=== PATIENT | male | born 1955 | race Two or more races ===

== ENCOUNTER 2024-09-27 13:45 | Inpatient (IN) | payer MEDICARE, OTHER ==
[~2024-09-27] VITALS: Ht 172.7 cm; Wt 81.7 kg
--- NOTE | 2024-09-27 14:45 | ED.PDOC ---
History of Present Illness HPI Comments This is a 69 year old male presenting to the ED with chief complaint of abnormal labs and joint pain. Patient reports that he has been experiencing joint pains for the past 6-8 weeks along with associated bilateral hand swelling. Patient relays that he visited urgent care today and had been provided Toradol and steroid injection for his pain/swelling. Patient states he has been experiencing some recent SOB and fatigue recently, so when his blood was checked by the urgent care, he was found to have a Hgb of 7.6. Patient notes he was advised by the to come into the ED for further evaluation. Patient denies any chest pain, dizziness, headache, fever, chills, N/V/D, or abdominal pain. Chief Complaint: Abnormal LAB's Time Seen by MD: 14:41 Reviewed Notes: Nurses Notes, Medications, Allergies Allergies: Coded Allergies: Anesthetics, Amide (Verified Allergy, Intermediate, 09/27/24) Information Source: Patient Mode of Arrival: Ambulatory Severity: Moderate Timing: Weeks Duration: Since onset Prehospital treatment: None Past Medical History PAST MEDICAL HISTORY: High Lipids, HTN Past Medical History (Other): BPH Surgical History (Other): Bilateral knee surgery, right carpal tunnel surgery Family History Family History: Reviewed,noncontributory to illness Family History (Other): Alzheimer's Social History Smoker: Non-Smoker Alcohol: Denies ETOH Use Drugs: Denies Drug Use Lives In: Home Constitutional: reports: fatigue; denies: chills, diaphoresis, fever, malaise, sweats, weakness, others EENTM: denies: blurred vision, double vision, ear bleeding, ear discharge, ear drainage, ear pain, ear ringing, eye pain, eye redness, hearing loss, mouth pain, mouth swelling, nasal discharge, nose bleeding, nose congestion, nose pain, photophobia, tearing, throat pain, throat swelling, voice changes, others Respiratory: reports: shortness of breath; denies: cough, hemoptysis, orthopnea, SOB at rest, SOB with excertion, stridor, wheezing, others Cardiovascular: denies: chest pain, dizzy spells, diaphoresis, Dyspnea on exertion, edema, irregular heart beat, left arm pain, lightheadedness, palpitations, PND, syncope, others Gastrointestinal: denies: abdomen distended, abdominal pain, blood streaked bowels, constipated, diarrhea, dysphagia, difficulty swallowing, hematemesis, melena, nausea, poor appetite, poor fluid intake, rectal bleeding, rectal pain, vomiting, others Genitourinary: denies: burning, dysuria, flank pain, frequency, hematuria, incontinence, penile discharge, penile sore, pain, testicle pain, testicle swelling, urgency, others Neurological: denies: dizziness, fainting, headache, left sided numbness, left sided weakness, numbness, paresthesia, pre-existing deficit, right sided numb ness, right sided weakness, seizure, speech problems, tingling, tremors, weakness, others Musculoskeletal: reports: joint pain, others (Bilateral hand swelling); denies: back pain, gout, joint swelling, muscle pain, muscle stiffness, neck pain Integumetry: denies: bruises, change in color, change in hair/nails, dryness, laceration, lesions, lumps, rash, wounds, others Allergic/Immunocompromised: denies: Difficulty Healing, Frequent Infections, Hives, Itching, others Hematologic/Lymphatic: denies: anemia, blood clots, easy bleeding, easy bruising, swollen glands, others Endocrine: denies: excessive hunger, excessive sweating, excessive thirst, excessive urination, flushing, intolerance to cold, intolerance to heat, unexplained weight gain, unexplained weight loss, others Psychiatric: denies: anxiety, bipolar disorder, depression, hopeless, panic disorder, schizophrenia, sleepless, suicidal, others All Other Systems: Reviewed and Negative Physical Exam General Appearance: Moderate Distress HEENT: Pale Conjuntivae (L), Pale Conjuntivae (R), Pharynx Normal, TMs Normal Neck: Full Range of Motion, Non-Tender, Normal, Normal Inspection Respiratory: Chest Non-Tender, Lungs Clear, No Accessory Muscle Use, No Respiratory Distress, Normal Breath Sounds Cardiovascular: No Edema, No JVD, No Murmur, No Gallop, Normal Peripheral Pulses, Regular Rate/Rhythm Breast Exam: Deferred Gastrointestinal: No Organomegaly, Non Tender, No Pulsatile Mass, Normal Bowel Sounds, Soft Genitalia: Deferred Pelvic: Deferred Rectal: Deferred Extremities: No calf tenderness, Normal capillary refill, No pedal edema Musculoskeletal : Apperance: Normal Neurologic: Alert, publicity agent II-XII nml as Tested, Motor Weakness, Normal Affect, Normal Mood, No Sensory Deficits Cerebellar Function: Normal Reflexes: Normal Skin: Dry, Pallor, Warm Lymphatic: No Adenopathy Was a procedure done? Was a procedure done?: No Differential Dx Considerations may include: Generalized weakness, anemia, leukopenia X-Ray, Labs, Meds, VS Vital Signs Date Time Temp Pulse Resp B/P (MAP) Pulse Ox O2 Delivery O2 Flow Rate FiO2 09/27/24 17:20 Room Air* 0 21 09/27/24 17:00 98.3 69 15 119/78 (92) 96 98.3 09/27/24 16:19 98.3 74 16 140/82 (101) 95 98.3 09/27/24 14:13 98.2 86 16 142/82 (102) 97 98.2 Lab Test 09/27/24 15:45 09/27/24 14:06 Range/Units White Blood Count 1.8 *L 4.4-10.8 10^3/uL Red Blood Count 2.34 L 4.5-5.90 10^6/uL Hemoglobin 7.4 L 13.5-17.5 g/dL Hematocrit 23.3 L 41.0-53.0 % Mean Corpuscular Volume 99.6 80.0-100.0 fL Mean Corpuscular Hemoglobin 31.8 28.0-32.0 pg Mean Corpuscular Hemoglobin Concent 31.9 L 32.0-36.0 g/dL Red Cell Distribution Width 20.5 H 11.8-14.3 % Platelet Count 135 L 140-450 10^3/uL Mean Platelet Volume 7.2 6.9-10.8 fL Neutrophils (%) (Auto) 37.0-80.0 % Lymphocytes (%) (Auto) 10.0-50.0 % Monocytes (%) (Auto) 0.0-12.0 % Basophils (%) (Auto) 0.0-2.0 % Neutrophils # (Auto) 1.6-8.6 10 ^3/uL Lymphocytes # (Auto) 0.4-5.4 10 ^3/uL Monocytes # (Auto) 0-1.3 10 ^3/uL Differential Total Cells Counted 100.0 100 Neutrophils % (Manual) 67 37.0-80.0 Band Neutrophils % (Manual) 0 Lymphocytes % (Manual) 25 10.0-50.0 Monocytes % (Manual) 7 0-12 Eosinophils % (Manual) 0 0-7 Basophils % (Manual) 0 0.0-2.0 Metamyelocytes % (manual) 0 Myelocytes % (Manual) 1 Promyelocytes % (Manual) 0 Blast Cells % (Manual) 0 Reactive Lymphocytes 0 Platelet Estimate Decreased Anisocytosis (manual) Slight Prothrombin Time 11.1 9.3-11.8 sec Prothrombin Time INR 1.05 0.9-1.15 Activated Partial Thromboplast Time 27.6 24.5-34.5 SEC Sodium Level 139 136-145 mmol/L Potassium Level 4.5 3.5-5.1 mmol/L Chloride Level 108 H 98-107 mmol/L Carbon Dioxide Level 21 20-31 mmol/L Anion Gap 10 5-15 Blood Urea Nitrogen 19 9-23 mg/dL Creatinine 1.05 0.700-1.30 mg/dL Glomerular Filtration Rate Calc 76 >90 mL/min BUN/Creatinine Ratio 18.1 10.0-20.0 Serum Glucose 121 H 74-106 mg/dL Calcium Level 10.4 8.7-10.4 mg/dL Urine Color Light-orange Yellow Urine Clarity Ex.turbid Clear Urine pH 5.0 5.0-9.0 Urine Specific [place] 1.027 1.001-1.035 Urine Protein Negative Negative Urine Ketones Negative Negative Urine Blood Negative Negative /uL Urine Nitrite Negative Negative Urine Bilirubin Negative Negative Urine Urobilinogen 2 H Negative mg/dL Urine Leukocyte Esterase Negative Negative /uL Urine RBC 1 0 - 3 /hpf Urine Microscopic WBC 12 H 0-3 /HPF Urine Squamous Epithelial Cells None seen <5 /hpf Urine Bacteria None seen None Seen /hpf Urine Mucus Few None Seen Urine Glucose Normal Normal mg/dL The CBC shows a white blood cell count of 1.8 The patient is anemic with a hemoglobin of 7.4 and hematocrit 23.3 The patient's platelets are 135 The INR is 1.05 The chemistry panel is within normal limits The urine test is negative for any infection At this time a CAT scan of the abdomen and pelvis shows: IMPRESSION: Mild gastric wall thickening which may be due to inadequate distention/pierre ritis. Moderate amount of fecal material within the colon. Mild rectal wall thickening which may be due to inadequate distention with neoplasm not excluded. Enlarged prostate. Recommend correlation with PSA. We discussed the patient's findings and also discussed the fact that we need to work him up for possible neoplasm The patient is being admitted We have also discussed the findings with the patient's daughter The patient understands and agrees with the management. Images Reviewed?: Images reviewed and evaluated by me Time of 1ST Reevaluation: 18:21 Reevaluation 1ST: Unchanged Patient Education/Counseling: Diagnosis, Treatment, Prognosis Family Education/Counseling: Diagnosis, Treatment, Prognosis Additional Information Reviewed patient's previous visit(s): None The following tests were ordered, and results were reviewed by me: CBC, BMP Additional information was gathered from interviewing the following independent historian: NONE I reviewed and agreed with the following test results read by other provider: NONE I discussed treatments and results with medical personnel and: Patient Comprehensive systems review obtained and negative except for what is stated in the HPI. Departure 1 Departure Time of Disposition: 18:20 Impression: Primary Impression: Leukopenia Qualified Codes: D72.819 - Decreased white blood cell count, unspecified Additional Impressions: Severe anemia Generalized weakness Gastric wall thickening Disposition: ADMITTED INPATIENT Admit to: Tele Condition: Fair Critical Care Note Critical Care Time?: No Stability Stability form required: Yes Unstable for transfer: ED Physician Assesment (Clinical assesment) Heart Score Heart Score: Heart Score Response (Comments) Value History N/A 0 EKG N/A 0 Age N/A 0 Risk Factors N/A 0 Troponin N/A 0 Total 0 I personally scribed for ELVIRA GRISSOM MD ([email or web address]) on 09/27/24 at 14:45. Electronically submitted by Lj Dudley ([email or web address]). ELVIRA GRISSOM MD Sep 27, 2024 14:45
[2024-09-27 15:58] LABS: Urine Bacteria None Seen /hpf (None Seen)
--- NOTE | 2024-09-27 16:02 | DVH ---
Exam: CT CT AB PEL WO CON-NO ORAL OR IV History: pain Comparison Study: None TECHNIQUE: Multidetector CT of the abdomen and pelvis without IV contrast. Axial, coronal and sagitta l multiplanar reformats were obtained from the axial data set by the technologist. Radiation Dose Information: CT Dose: CTDI volume is 20.45 mGy. Dose-length product is 1075.28 mGy*cm FINDINGS: Bibasilar atelectasis. Partially visualized heart is unremarkable. Liver, spleen, gallbladder, pancreas and adrenal glands unremarkable. Mild nonspecific bilateral perinephric fat stranding. Otherwise, kidneys, ureters and urinary bladde r unremarkable. Prostate measures 4.5 x 5.2 by 3.9 cm. Mild gastric wall thickening. Small bowel loops are unremarkable. Appendix is unremarkable. Moderate amount of fecal material within the colon. Mild rectal wall thickening. No evidence of intraperitoneal free air or free fluid. No evidence of aortic aneurysm. Mild atherosclerotic calcification of the aorta. No significant lymphadenopathy. The soft tissue is unremarkable. Prominent right inguinal lymph node which may be reactive. Sclerotic foci of the bilateral proximal femur bilateral pelvic bones which may represent bone islands blastic lesions not excluded. Multilevel severe degenerative changes of the thoracic and lumbar spine. IMPRESSION: Mild gastric wall thickening which may be due to inadequate distention/gastritis. Moderate amount of fecal material within the colon. Mild rectal wall thickening which may be due to inadequate distention with neoplasm not excluded. Enlarged prostate. Recommend correlation with PSA.
[2024-09-27 16:21] LABS: Urine Blood Negative /uL (Negative); Urine Clarity Ex.Turbid (Clear); Urine Color Light-Orange (Yellow); Urine Mucus FEW (None Seen); Urine Protein, UAD Negative (Negative); Urine Specific Gravity 1.027 (1.001-1.035); Urine Squamous Epithelial Cell None Seen /hpf (<5); Urine Urobilinogen 2 mg/dL (Negative); Urine WBC 12 /HPF (0-3)
[2024-09-27 16:24] LABS: Anion Gap 10 (5-15); Carbon Dioxide 21 mmol/L (20-31); Potassium 4.5 mmol/L (3.5-5.1); Sodium 139 mmol/L (136-145)
[2024-09-27 16:25] LABS: Calcium 10.4 mg/dL (8.7-10.4)
[2024-09-27 16:30] LABS: BUN/Creatinine Ratio 18.1 (10.0-20.0); Blood Urea Nitrogen 19 mg/dL (9-23)
[2024-09-27 16:31] LABS: Chloride 108 mmol/L (98-107); Glucose 121 mg/dL (74-106)
[2024-09-27 16:32] LABS: INR 1.05 (0.9-1.15); Partial Thromboplastin Time 27.6 SEC (24.5-34.5); Prothrombin Time 11.1 sec (9.3-11.8)
[2024-09-27 16:33] LABS: Hematocrit 23.3 % (41.0-53.0); Hemoglobin 7.4 g/dL (13.5-17.5); Mean Corpuscular Hemoglobin 31.8 pg (28.0-32.0); Mean Corpuscular Hgb Conc. 31.9 g/dL (32.0-36.0); Mean Corpuscular Volume 99.6 fL (80.0-100.0); Platelet Count (auto) 135 10^3/uL (140-450); Red Blood Cells 2.34 10^6/uL (4.5-5.90)
[2024-09-27 16:35] LABS: Red Cell Distribution Width 20.5 % (11.8-14.3)
[2024-09-27 16:38] LABS: White Blood Cell 1.8 10^3/uL (4.4-10.8)
[2024-09-27 16:39] LABS: Band Neutrophils % (manual) 0; Basophils % (manual) 0 (0.0-2.0); Blast Cells 0; Eosinophils % (manual) 0 (0-7); Metamyelocytes % 0; Promyelocytes % 0; Reactive Lymphocytes 0
[2024-09-27 17:42] LABS: Anisocytosis Slight; Lymphocytes % (manual) 25 (10.0-50.0); Monocytes % (manual) 7 (0-12); Myelocytes % 1; Platelet Estimate Decreased
[2024-09-27 19:45] VITALS: BP 142/87; PULSE 71; RESP 13; TEMP 97.8
[2024-09-27] MEDS ORDERED: ACETAMINOPHEN 325 MG TAB PO PRN (19:45)
[2024-09-27] MEDS ORDERED: hydrALAZINE HCL 20 MG/ML VL IV PRN (19:45)
[2024-09-27] MEDS ORDERED: ONDANSETRON HCL 4 MG/2 ML VIAL IV PRN (19:45)
[2024-09-27] MEDS ORDERED: HYDROcodone-ACET 5/325MG TAB PO PRN (19:45)
[2024-09-27 20:10] VITALS: BP 141/91; PULSE 65; RESP 18; TEMP 97.9
[2024-09-27] MEDS: SODIUM CHLORIDE 0.9% 1,000 ML IV SCH (21:40)
[2024-09-27] MEDS: amLODIPine BESYLATE 5 MG TAB PO ONE (21:51)
[2024-09-27] MEDS: ATORVASTATIN 20 MG TAB PO SCH (21:53)
--- NOTE | 2024-09-27 22:12 | DVHHP2 ---
History of Present Illness Reason for Visit: Severe anemia History of Present Illness The patient is a 69-year-old male with past medical history of BPH, hypertension, and hyperlipidemia who presented to [facility] ED for evaluation of abnormal labs. Patient reports that he has been experiencing joint pains for the past 6-8 weeks with associated bilateral hand swelling, fatigue, shortness of breaths. Patient states that he visited urgent care today and had been provided Toradol and steroid injection for his pain/swelling. Patient was seen and evaluated in the ED, laboratory data shows WBC 1.8, hemoglobin 7.4, hematocrit 23.3, platelets 135, sodium 139, potassium 4.5, BUN 19, creatinine 1.05, glucose 121, calcium 10.4, blood pressure 155/94, heart rate 72, temperature 98.3 F, O2 saturation 96% on oxygen. Abdomen/pelvis CT revealing mild gastric wall thickening which may be due to inadequate distention/gastritis, moderate amount of fecal material within the colon, mild rectal wall thickening which may be due to inadequate distention with neoplasm not excluded, enlarged prostate noted. Patient was given 1 unit of PRBC, please see medication orders section in the computer. On my assessment, patient denied chest pain, no headache, no dizziness, and blurry vision, no diaphoresis, currently on oxygen, no nausea, no vomiting, no fever, no chills. Patient was admitted for further evaluation and medical management. Past Medical History High Lipids, HTN, BPH Past Surgical History Bilateral knee surgery, Right carpal tunnel surgery Family History Reviewed, noncontributory to the management of this case. Past Social History The patient lives at home, denies smoking, alcohol or illicit drugs abuse. Review of Systems Constitutional: Yes: Weakness, Other (Fatigue); No: Fever, Chills, Sweats, Malaise Eyes: No: Pain, Vision change, Conjunctivae inflammation, Eyelid inflammation, Other, Redness ENT: No: Ear pain, Ear discharge, Nose pain, Nose discharge, Nose congestion, Mouth pain, Mouth swelling, Throat pain, Throat swelling, Other Respiratory: No: Cough, Dry, Shortness of breath, SOB with excertion, Wheezing, Hemoptysis, Pleuritic Pain, Sputum, Wheezing, Other Cardiovascular: No: Chest Pain, Palpitations, Orthopnea, Paroxysmal Noc. Dyspnea, Edema, Lt Headedness, Other Gastrointestinal: No: Nausea, Vomiting, Abdominal Pain, Diarrhea, Constipation, Melena, Hematochezia, Other Genitourinary: No Dysuria, No Frequency, No Incontinence, No Hematuria, No Retention, No Other Musculoskeletal: other (Joint pain), arm pain (Bilateral hand swelling); No: neck pain, shoulder pain, back pain, hand pain, leg pain, foot pain Skin: No: Rash, Lesions, Jaundice, Bruising, Other Neurological: No: Weakness, Numbness, Incoordination, Change in speech, Confusion, Seizures, Other Allergies: Coded Allergies: Anesthetics, Amide (Verified Allergy, Intermediate, 09/27/24) Medications Current Medications Medications Dose Ordered Sig/Rigo Route Start Time Stop Time Status Last Admin Dose Admin Tamsulosin HCl 0.4 mg QPM PO 09/28/24 18:00 Hydralazine HCl 10 mg Q6HP PRN IV 09/27/24 19:45 Amlodipine Besylate 5 mg DAILY PO 09/28/24 10:00 Sodium Chloride 1,000 ml @ 60 mls/hr [id number] IV 09/27/24 19:45 Acetaminophen/ Hydrocodone Bitart 1 tab Q4HP PRN PO 09/27/24 19:45 Ondansetron HCl 4 mg Q4HP PRN IV 09/27/24 19:45 Docusate Sodium 100 mg BIDPRN PRN PO 09/27/24 19:45 Acetaminophen 650 mg Q6HP PRN PO 09/27/24 19:45 Atorvastatin Calcium 10 mg HS PO 09/27/24 22:00 09/27/24 21:53 10 MG Exam Vital Signs Vital Signs Date Time Temp Pulse Resp B/P (MAP) Pulse Ox O2 Delivery O2 Flow Rate FiO2 09/27/24 21:51 147/92 09/27/24 20:10 97.9 65 18 97.9 09/27/24 18:59 93 09/27/24 17:20 Room Air* 0 21 General Appearance: Alert, Oriented X3, Cooperative, No acute distress HEENT: Atraumatic, PERRLA, EOMI, Mucous membr. moist/pink Respiratory: Clear to auscultation, Normal air movement Cardiovascular: Regular rate, Normal S1, Normal S2, No murmurs Abdominal: Normal bowel sounds, Soft, No tenderness, No hepatospenomegaly, No masses Extremities: No clubbing, No cyanosis, No edema, Normal pulses, Other (Bilateral hand swelling/tenderness) Skin: No rashes, No breakdown, No significant lesion Neuro: Normal speech, Normal tone, Sensation intact, Cranial nerves 3-12 NL, Reflexes 2+, Other (Generalized weakness) Psych/Mental Status: Mental status NL, Mood NL Labs/Xrays Labs Test 09/27/24 15:45 09/27/24 14:06 Range/Units White Blood Count 1.8 *L 4.4-10.8 10^3/uL Red Blood Count 2.34 L 4.5-5.90 10^6/uL Hemoglobin 7.4 L 13.5-17.5 g/dL Hematocrit 23.3 L 41.0-53.0 % Mean Corpuscular Volume 99.6 80.0-100.0 fL Mean Corpuscular Hemoglobin 31.8 28.0-32.0 pg Mean Corpuscular Hemoglobin Concent 31.9 L 32.0-36.0 g/dL Red Cell Distribution Width 20.5 H 11.8-14.3 % Platelet Count 135 L 140-450 10^3/uL Mean Platelet Volume 7.2 6.9-10.8 fL Neutrophils (%) (Auto) 37.0-80.0 % Lymphocytes (%) (Auto) 10.0-50.0 % Monocytes (%) (Auto) 0.0-12.0 % Basophils (%) (Auto) 0.0-2.0 % Neutrophils # (Auto) 1.6-8.6 10 ^3/uL Lymphocytes # (Auto) 0.4-5.4 10 ^3/uL Monocytes # (Auto) 0-1.3 10 ^3/uL Differential Total Cells Counted 100.0 100 Neutrophils % (Manual) 67 37.0-80.0 Band Neutrophils % (Manual) 0 Lymphocytes % (Manual) 25 10.0-50.0 Monocytes % (Manual) 7 0-12 Eosinophils % (Manual) 0 0-7 Basophils % (Manual) 0 0.0-2.0 Metamyelocytes % (manual) 0 Myelocytes % (Manual) 1 Promyelocytes % (Manual) 0 Blast Cells % (Manual) 0 Reactive Lymphocytes 0 Platelet Estimate Decreased Anisocytosis (manual) Slight Prothrombin Time 11.1 9.3-11.8 sec Prothrombin Time INR 1.05 0.9-1.15 Activated Partial Thromboplast Time 27.6 24.5-34.5 SEC Sodium Level 139 136-145 mmol/L Potassium Level 4.5 3.5-5.1 mmol/L Chloride Level 108 H 98-107 mmol/L Carbon Dioxide Level 21 20-31 mmol/L Anion Gap 10 5-15 Blood Urea Nitrogen 19 9-23 mg/dL Creatinine 1.05 0.700-1.30 mg/dL Glomerular Filtration Rate Calc 76 >90 mL/min BUN/Creatinine Ratio 18.1 10.0-20.0 Serum Glucose 121 H 74-106 mg/dL Calcium Level 10.4 8.7-10.4 mg/dL Urine Color Light-orange Yellow Urine Clarity Ex.turbid Clear Urine pH 5.0 5.0-9.0 Urine Specific [place] 1.027 1.001-1.035 Urine Protein Negative Negative Urine Ketones Negative Negative Urine Blood Negative Negative /uL Urine Nitrite Negative Negative Urine Bilirubin Negative Negative Urine Urobilinogen 2 H Negative mg/dL Urine Leukocyte Esterase Negative Negative /uL Urine RBC 1 0 - 3 /hpf Urine Microscopic WBC 12 H 0-3 /HPF Urine Squamous Epithelial Cells None seen <5 /hpf Urine Bacteria None seen None Seen /hpf Urine Mucus Few None Seen Urine Glucose Normal Normal mg/dL PATIENT: SHANTANU BYERS ALANACCT: [id number] UNIT: [id number] : 1955 LOC: ER ROOM / BED: / AGE / SEX: 69 / M ADM STATUS: REG ER SERVICE [id number] ORDERING PHYSICIAN: ELVIRA GRISSOM MD PROCEDURE(s): ABPL - CT AB PEL WO CON-NO ORAL OR IV REASON: pain ORDER NUMBER(s): [id number], ACCESSION NUMBER(s): [id number] Exam: CT CT AB PEL WO CON-NO ORAL OR IV History: pain Comparison Study: None TECHNIQUE: Multidetector CT of the abdomen and pelvis without IV contrast. Axial, coronal and sagittal multiplanar reformats were obtained from the axial data set by the technologist. Radiation Dose Information: CT Dose: CTDI volume is 20.45 mGy. Dose-length product is 1075.28 mGy*cm FINDINGS: Bibasilar atelectasis. Partially visualized heart is unremarkable. Liver, spleen, gallbladder, pancreas and adrenal glands unremarkable. Mild nonspecific bilateral perinephric fat stranding. Otherwise, kidneys, ureters and urinary bladder unremarkable. Prostate measures 4.5 x 5.2 by 3.9 cm. Mild gastric wall thickening. Small bowel loops are unremarkable. Appendix is unremarkable. Moderate amount of fecal material within the colon. Mild rectal wall thickening. No evidence of intraperitoneal free air or free fluid. No evidence of aortic aneurysm. Mild atherosclerotic calcification of the aorta. No significant lymphadenopathy. The soft tissue is unremarkable. Prominent right inguinal lymph node which may be reactive. Sclerotic foci of the bilateral proximal femur bilateral pelvic bones which may represent bone islands blastic lesions not excluded. Multilevel severe degenerative changes of the thoracic and lumbar spine. IMPRESSION: Mild gastric wall thickening which may be due to inadequate distention/gastritis. Moderate amount of fecal material within the colon. Mild rectal wall thickening which may be due to inadequate distention with neoplasm not excluded. Enlarged prostate. Recommend correlation with PSA. Assessment/Plan Assessment/Plan Severe anemia Pancytopenia Gastric wall thickening Generalized weakness Plan 1. Admit to telemetry unit 2. Breathing treatment 3. Pain control management 4. Management of fluids, electrolytes; blood transfusion 5. Consultation for Hematology/Oncology 6. Diagnostic tests chest x-ray 7. DVT prophylaxis-on SCDs 8. Repeat labs CBC, CMP in a.m. 9. Continue with current medical management 10. Treatment plan discussed with patient and RN. Patient verbalized understanding. Plan discussed with: Patient, Other (RN) My Orders Orders - HILARIO COLUNGA DNP Procedure Category Date Status Time Tamsulosin PHA 09/28/24 In Process Hydrochloride (Flomax) 18:00 Hydralazine Injection PHA 09/27/24 In Process (Apresoline Inject 19:45 Amlodipine Tablet PHA 09/28/24 In Process (Norvasc Tablet) 10:00 Allergies [place] 09/27/24 In Process 19:45 Code Status CODE 09/27/24 Transmitted 19:45 Sodium Chloride 0.9% PHA 09/27/24 In Process 19:45 Oxygen Per Hour RT 09/27/24 Transmitted 19:45 Hydrocodone-Acet PHA 09/27/24 In Process 5/325mg Tab ([place] 19:45 Ondansetron Hcl PHA 09/27/24 In Process (Zofran) 19:45 Docusate Sodium PHA 09/27/24 In Process Capsule (Colace 19:45 Fall Risk Precautions [place] 09/27/[address] 19:45 Complete Blood Count LAB 09/28/24 Verified 04:00 Comprehensive LAB 09/28/24 Verified Metabolic Panel 04:00 Cardiac DIET 09/28/24 Transmitted Diet-2gna,Lofat,Lochol Breakfast Condition: Serious [place] 09/27/24 In Process 19:45 Acetaminophen Tablet PHA 09/27/24 In Process (Tylenol Tablet) 19:45 Maintain Bed Rest [place] 09/27/24 In Process 19:45 Sequential [place] 09/27/24 In Process Compression Device * Hematology/Oncology CONS 09/27/24 Transmitted Consult 19:45 Atorvastatin (Lipitor) PHA 09/27/24 In Process 22:00 Problem List: (1) Severe anemia (2) Pancytopenia (3) Gastric wall thickening (4) Generalized weakness Date of Service: Sep 27, 2024 Billing Provider: HILARIO COLUNGA DNP Common Visit Codes: [id number]-NGPIHBP INP/OBS CARE (HIGH) HILARIO COLUNGA DNP Sep 27, 2024 22:12
[2024-09-27] MEDS ORDERED: NITROGLYCERIN 0.4 MG SL TAB SL PRN (22:15)
[2024-09-27] MEDS ORDERED: MORPHINE SULFATE 4 MG/ML SYR/VIAL IV PRN (22:15)
[2024-09-27 22:45] VITALS: BP 159/75; PULSE 57; RESP 21; TEMP 98.8
[2024-09-28 04:48] LABS: Hemoglobin 8.1 g/dL (13.5-17.5); White Blood Cell 2.2 10^3/uL (4.4-10.8)
[2024-09-28 04:49] LABS: Hematocrit 24.7 % (41.0-53.0); Mean Corpuscular Hemoglobin 32.5 pg (28.0-32.0); Mean Corpuscular Hgb Conc. 32.7 g/dL (32.0-36.0); Mean Corpuscular Volume 99.6 fL (80.0-100.0); Platelet Count (auto) 126 10^3/uL (140-450); Red Blood Cells 2.49 10^6/uL (4.5-5.90); Red Cell Distribution Width 20.2 % (11.8-14.3)
[2024-09-28 04:55] LABS: Band Neutrophils % (manual) 0; Basophils % (manual) 0 (0.0-2.0); Blast Cells 0; Eosinophils % (manual) 0 (0-7); Metamyelocytes % 0; Promyelocytes % 0; Reactive Lymphocytes 0
[2024-09-28 05:05] LABS: Albumin 4.3 g/dL (3.2-4.8); Alkaline Phosphatase 61 U/L (46-116); Anion Gap 8 (5-15); BUN/Creatinine Ratio 17.4 (10.0-20.0); Blood Urea Nitrogen 15 mg/dL (9-23); Calcium 9.5 mg/dL (8.7-10.4); Carbon Dioxide 22 mmol/L (20-31); Potassium 4.4 mmol/L (3.5-5.1); Sodium 138 mmol/L (136-145); Total Protein 7.1 g/dL (5.7-8.2)
[2024-09-28 05:06] LABS: Aspartate Aminotransferase 13 U/L (13-40); Chloride 108 mmol/L (98-107); Glucose 113 mg/dL (74-106)
[2024-09-28 05:07] LABS: Alanine Aminotransferase < 9 U/L (7-40); Bilirubin, Total 1.6 mg/dL (0.2-1.0)
[2024-09-28 05:18] LABS: Anisocytosis Slight; Lymphocytes % (manual) 36 (10.0-50.0); Monocytes % (manual) 5 (0-12); Myelocytes % 2; Platelet Estimate Decreased
[2024-09-28 07:30] VITALS: PULSE 51; RESP 13; O2SAT 99
[2024-09-28] MEDS: amLODIPine BESYLATE 5 MG TAB PO SCH (10:49)
[2024-09-28 15:36] VITALS: O2SAT 98
[2024-09-28 16:54] VITALS: BP 127/78; PULSE 58; RESP 18; TEMP 97.8; O2SAT 96
--- NOTE | 2024-09-28 17:04 | DVHPN2 ---
Subjective in bed resting Reviewed: H&P, Labs Changes from previous H/P or p: No Changes Eyes: No Pain, No Vision change, No Conjunctivae inflammation, No Eyelid inflammation, No Other, No Redness ENT: No Ear pain, No Ear discharge, No Nose pain, No Nose discharge, No Nose congestion, No Mouth pain, No Mouth swelling, No Throat pain, No Throat swelling, No Other Cardiovascular: No Chest Pain, No Palpitations, No Orthopnea, No Paroxysmal Noc. Dyspnea, No Edema, No Lt Headedness, No Other Respiratory: No Cough, No Dry, No Shortness of breath, No SOB with excertion, No Wheezing, No Hemoptysis, No Pleuritic Pain, No Sputum, No Other Gastrointestinal: No Nausea, No Vomiting, No Abdominal Pain, No Diarrhea, No Constipation, No Melena, No Hematochezia, No Other Genitourinary: No Dysuria, No Frequency, No Incontinence, No Hematuria, No Retention, No Other Musculoskeletal: other (Joint pain); No neck pain, No shoulder pain; arm pain (Bilateral hand swelling); No back pain, No hand pain, No leg pain, No foot pain Skin: No Rash, No Lesions, No Jaundice, No Bruising, No Other Objective Vitals Vital Signs Date Time Temp Pulse Resp B/P (MAP) Pulse Ox O2 Delivery O2 Flow Rate FiO2 09/28/24 16:54 97.8 58 18 127/78 (94) 96 97.8 09/28/24 15:36 Nasal Cannula* 2 28 Intake/Output Intake and Output 09/28/24 07:00 Intake Total 300 ml Output Total 0 ml Balance 300 ml Intake Oral 0 ml Blood Product 300 ml Output Urine Total 0 ml General Appearance: Alert, Oriented X3 HEENT: Atraumatic Lungs: Clear to auscultation Cardiovascular: Regular rate, Normal S1, Normal S2 Abdomen: Normal bowel sounds Medications Current Medications Medications Dose Ordered Sig/Rigo Route Start Time Stop Time Status Last Admin Dose Admin Tamsulosin HCl 0.4 mg QPM PO 09/28/24 18:00 Hydralazine HCl 10 mg Q6HP PRN IV 09/27/24 19:45 Amlodipine Besylate 5 mg DAILY PO 09/28/24 10:00 Sodium Chloride 1,000 ml @ 60 mls/hr [id number] IV 09/27/24 19:45 09/28/24 13:09 60 MLS/HR Acetaminophen/ Hydrocodone Bitart 1 tab Q4HP PRN PO 09/27/24 19:45 Ondansetron HCl 4 mg Q4HP PRN IV 09/27/24 19:45 Docusate Sodium 100 mg BIDPRN PRN PO 09/27/24 19:45 Acetaminophen 650 mg Q6HP PRN PO 09/27/24 19:45 Atorvastatin Calcium 10 mg HS PO 09/27/24 22:00 09/27/24 21:53 10 MG Nitroglycerin 0.4 mg Q5MINP PRN SL 09/27/24 22:15 Morphine Sulfate 2 mg Q30M PRN IV 09/27/24 22:15 Laboratory Results Laboratory Tests 09/28/24 04:18 Chemistry Test 09/28/24 04:18 Albumin 4.3 g/dL (3.2-4.8) Calcium Level 9.5 mg/dL (8.7-10.4) Total Protein 7.1 g/dL (5.7-8.2) LFT Test 09/28/24 04:18 Alanine Aminotransferase (ALT) < 9 U/L (7-40) Alkaline Phosphatase 61 U/L (46-116) Aspartate Amino Transferase (AST) 13 U/L (13-40) Total Bilirubin 1.6 mg/dL (0.2-1.0) H Urinalysis Test 09/27/24 14:06 Urine Color Light-orange (Yellow) Urine Clarity Ex.turbid (Clear) Urine pH 5.0 (5.0-9.0) Urine Specific [place] 1.027 (1.001-1.035) Urine Protein Negative (Negative) Urine Ketones Negative (Negative) Urine Blood Negative /uL (Negative) Urine Nitrite Negative (Negative) Urine Bilirubin Negative (Negative) Urine Urobilinogen 2 mg/dL (Negative) H Urine Leukocyte Esterase Negative /uL (Negative) Urine RBC 1 /hpf (0 - 3) Urine Microscopic WBC 12 /HPF (0-3) H Urine Squamous Epithelial Cells None seen /hpf (<5) Urine Bacteria None seen /hpf (None Seen) Urine Mucus Few (None Seen) Urine Glucose Normal mg/dL (Normal) Assessment/Plan Assessment/Plan Severe anemia Pancytopenia Gastric wall thickening Generalized weakness Monitor CBC hem and GI consulted PPI daily Plan discussed with: Patient My Orders Orders - KELSY,NARINDER J MD Procedure Category Date Status Time * Gi D[facility] [employer] Supervisor CONS 09/28/24 Transmitted 17:02 Date of Service: Sep 28, 2024 Billing Provider: NARINDER TIERNEY MD Common Visit Codes: [id number] INP/OBS CARE(HIGH) NARINDER TIERNEY MD Sep 28, 2024 17:04
[2024-09-28] MEDS: TAMSULOSIN HYDROCHLORIDE 0.4 MG CAP PO SCH (17:31)
[2024-09-28 20:00] VITALS: PULSE 60; PULSE 69; RESP 18
[2024-09-28 20:51] VITALS: BP 107/72; PULSE 60; RESP 18; TEMP 98.1; O2SAT 97
[2024-09-29] VITALS (8 sets, daily range): BP systolic 103–129; BP diastolic 65–84; PULSE 53–75; RESP 16–18; TEMP 97.6–98.6; O2SAT 95–97
[2024-09-29] MEDS: DOCUSATE SOD 100 MG CAP PO PRN (15:44)
--- NOTE | 2024-09-29 17:12 | DVHINCON2 ---
Date of service: Sep 29, [address] COLUNGA Reason for Consultation Abdominal pain severe anemia severe anemia History of Present Illness This 69-year-old male with a history of PPIs hypertension hyperlipidemia presented to the emergency room with complaints of abdominal pain joint pains weakness and severe anemia any had some hence swelling fatigue swelling in the legs and came into the ER and was given steroid injection as well as Toradol with some patient was found to be pale and was biliary blood test done showed that the hemoglobin at 7.4 white count has also decreased. Patient was sent to the emergency room and where the workup was done which jen wed there was abnormal gastric wall thickening as well as some fecal material in the colon along with some rectal wall thickening on the CAT scan of the abdomen There was also an enlarged prostate There was also suspicious possible bone lesions possibly metastasis could not be excluded No history of any gross GI bleeding no history of any ulcer disease or colon problems Past Medical History Hypertension diabetes hyper lipid BPH on medication for the same Past Surgical History Knee surgeries and right carpal tunnel Family History: Alzheimer's disease G8 MOTHER Family History Noncontributory Social History Denies smoking or drinking Allergies: Coded Allergies: Anesthetics, Amide (Verified Allergy, Intermediate, 09/27/24) Current Medications Current Medications Medications (Trade) Dose Ordered Sig/Rigo Route PRN Reason Start Time Stop Time Status Last Admin Tamsulosin HCl (Flomax) 0.4 mg QPM PO 09/28/24 18:00 09/28/24 17:31 Review of Systems Noncontributory Vital Signs Vital Signs Date Time Temp Pulse Resp B/P (MAP) Pulse Ox O2 Delivery O2 Flow Rate FiO2 09/29/24 13:00 97.6 53 16 129/79 (96) 96 97.6 09/29/24 08:00 Room Air* 0 21 Physical Exam Moderately built and nourished slightly on the obese side male in no acute distress Vital stable HEENT examination no pallor no icterus Neck was supple no lymphadenopathy no thyromegaly Chest was bilaterally symmetrical lungs are clear Unremarkable cardiovascular Abdomen is soft mild tenderness in the epigastric area no rigidity no guarding no masses bowel sounds Extremities no edema no varicosities but some swelling in the joints in the wrist Neuro grossly intact Labs/Diagnostic Data Labs Test 09/28/24 04:18 09/27/24 15:45 09/27/24 14:06 Range/Units White Blood Count 2.2 L 4.4-10.8 10^3/uL Red Blood Count 2.49 L 4.5-5.90 10^6/uL Hemoglobin 8.1 L 13.5-17.5 g/dL Hematocrit 24.7 L 41.0-53.0 % Mean Corpuscular Volume 99.6 80.0-100.0 fL Mean Corpuscular Hemoglobin 32.5 H 28.0-32.0 pg Mean Corpuscular Hemoglobin Concent 32.7 32.0-36.0 g/dL Red Cell Distribution Width 20.2 H 11.8-14.3 % Platelet Count 126 L 140-450 10^3/uL Mean Platelet Volume 7.0 6.9-10.8 fL Neutrophils (%) (Auto) 37.0-80.0 % Lymphocytes (%) (Auto) 10.0-50.0 % Monocytes (%) (Auto) 0.0-12.0 % Basophils (%) (Auto) 0.0-2.0 % Neutrophils # (Auto) 1.6-8.6 10 ^3/uL Lymphocytes # (Auto) 0.4-5.4 10 ^3/uL Monocytes # (Auto) 0-1.3 10 ^3/uL Differential Total Cells Counted 100.0 100 Neutrophils % (Manual) 57 37.0-80.0 Band Neutrophils % (Manual) 0 Lymphocytes % (Manual) 36 10.0-50.0 Monocytes % (Manual) 5 0-12 Eosinophils % (Manual) 0 0-7 Basophils % (Manual) 0 0.0-2.0 Metamyelocytes % (manual) 0 Myelocytes % (Manual) 2 Promyelocytes % (Manual) 0 Blast Cells % (Manual) 0 Reactive Lymphocytes 0 Platelet Estimate Decreased Anisocytosis (manual) Slight Sodium Level 138 136-145 mmol/L Potassium Level 4.4 3.5-5.1 mmol/L Chloride Level 108 H 98-107 mmol/L Carbon Dioxide Level 22 20-31 mmol/L Anion Gap 8 5-15 Blood Urea Nitrogen 15 9-23 mg/dL Creatinine 0.86 0.700-1.30 mg/dL Glomerular Filtration Rate Calc 93 >90 mL/min BUN/Creatinine Ratio 17.4 10.0-20.0 Serum Glucose 113 H 74-106 mg/dL Calcium Level 9.5 8.7-10.4 mg/dL Total Bilirubin 1.6 H 0.2-1.0 mg/dL Aspartate Amino Transferase (AST) 13 13-40 U/L Alanine Aminotransferase (ALT) < 9 7-40 U/L Alkaline Phosphatase 61 46-116 U/L Total Protein 7.1 5.7-8.2 g/dL Albumin 4.3 3.2-4.8 g/dL Prothrombin Time 11.1 9.3-11.8 sec Prothrombin Time INR 1.05 0.9-1.15 Activated Partial Thromboplast Time 27.6 24.5-34.5 SEC Urine Color Light-orange Yellow Urine Clarity Ex.turbid Clear Urine pH 5.0 5.0-9.0 Urine Specific [place] 1.027 1.001-1.035 Urine Protein Negative Negative Urine Ketones Negative Negative Urine Blood Negative Negative /uL Urine Nitrite Negative Negative Urine Bilirubin Negative Negative Urine Urobilinogen 2 H Negative mg/dL Urine Leukocyte Esterase Negative Negative /uL Urine RBC 1 0 - 3 /hpf Urine Microscopic WBC 12 H 0-3 /HPF Urine Squamous Epithelial Cells None seen <5 /hpf Urine Bacteria None seen None Seen /hpf Urine Mucus Few None Seen Urine Glucose Normal Normal mg/dL Assessment 69-year-old with a history of BPH hypertension hyperlipidemia presenting with complaints of anemia weakness joint swellings and fatigue Was found to be anemic with a hemoglobin of 7.4 g had some Toradol and steroid injection for arthritis in the urgent care His white count is also low Abdomen is CT showed thickening of the gastric wall as well as rectal wall stability of malignancy can not be excluded also prostate enlargement Clinical impression anemia and leukopenia of undetermined details Abnormal GI x-rays Clinical impression Meal could be from the GI tract a GI malignancy or GI pathology can not be excluded Possibility of prostate cancer with bony Mets with leukopenia and anemia also can not be excluded Plan/Recommendation We will recommend Hematology consult Follow the CBC Stool for Hemoccult PSA level We will recommend EGD and colon evaluation as soon as the WBC count is better or cleared by Hematology Thank you Dr. Case Plan discussed with: Patient DAKOTA CASE MD Sep 29, 2024 17:12
--- NOTE | 2024-09-29 19:05 | DVHPN2 ---
Subjective in bed resting Reviewed: H&P, Labs Changes from previous H/P or p: No Changes Eyes: No Pain, No Vision change, No Conjunctivae inflammation, No Eyelid inflammation, No Other, No Redness ENT: No Ear pain, No Ear discharge, No Nose pain, No Nose discharge, No Nose congestion, No Mouth pain, No Mouth swelling, No Throat pain, No Throat swelling, No Other Cardiovascular: No Chest Pain, No Palpitations, No Orthopnea, No Paroxysmal Noc. Dyspnea, No Edema, No Lt Headedness, No Other Respiratory: No Cough, No Dry, No Shortness of breath, No SOB with excertion, No Wheezing, No Hemoptysis, No Pleuritic Pain, No Sputum, No Other Gastrointestinal: No Nausea, No Vomiting, No Abdominal Pain, No Diarrhea, No Constipation, No Melena, No Hematochezia, No Other Genitourinary: No Dysuria, No Frequency, No Incontinence, No Hematuria, No Retention, No Other Musculoskeletal: other (Joint pain); No neck pain, No shoulder pain; arm pain (Bilateral hand swelling); No back pain, No hand pain, No leg pain, No foot pain Skin: No Rash, No Lesions, No Jaundice, No Bruising, No Other Objective Vitals Vital Signs Date Time Temp Pulse Resp B/P (MAP) Pulse Ox O2 Delivery O2 Flow Rate FiO2 09/29/24 17:00 98.2 66 17 112/65 (81) 96 98.2 09/29/24 08:00 Room Air* 0 21 Intake/Output Intake and Output 09/29/24 07:00 Intake Total 2150 ml Balance 2150 ml Intake Oral 1150 ml IV Total 1000 ml # Voids 4 General Appearance: Alert, Oriented X3 HEENT: Atraumatic Lungs: Clear to auscultation Cardiovascular: Regular rate, Normal S1, Normal S2 Abdomen: Normal bowel sounds Medications Current Medications Medications Dose Ordered Sig/Rigo Route Start Time Stop Time Status Last Admin Dose Admin Tamsulosin HCl 0.4 mg QPM PO 09/28/24 18:00 09/29/24 17:54 0.4 MG Hydralazine HCl 10 mg Q6HP PRN IV 09/27/24 19:45 Amlodipine Besylate 5 mg DAILY PO 09/28/24 10:00 Sodium Chloride 1,000 ml @ 60 mls/hr [id number] IV 09/27/24 19:45 09/29/24 06:35 60 MLS/HR Acetaminophen/ Hydrocodone Bitart 1 tab Q4HP PRN PO 09/27/24 19:45 Ondansetron HCl 4 mg Q4HP PRN IV 09/27/24 19:45 Docusate Sodium 100 mg BIDPRN PRN PO 09/27/24 19:45 09/29/24 15:44 100 MG Acetaminophen 650 mg Q6HP PRN PO 09/27/24 19:45 Atorvastatin Calcium 10 mg HS PO 09/27/24 22:00 09/28/24 22:21 10 MG Nitroglycerin 0.4 mg Q5MINP PRN SL 09/27/24 22:15 Morphine Sulfate 2 mg Q30M PRN IV 09/27/24 22:15 Laboratory Results Laboratory Tests 09/28/24 04:18 Urinalysis Test 09/27/24 14:06 Urine Color Light-orange (Yellow) Urine Clarity Ex.turbid (Clear) Urine pH 5.0 (5.0-9.0) Urine Specific [place] 1.027 (1.001-1.035) Urine Protein Negative (Negative) Urine Ketones Negative (Negative) Urine Blood Negative /uL (Negative) Urine Nitrite Negative (Negative) Urine Bilirubin Negative (Negative) Urine Urobilinogen 2 mg/dL (Negative) H Urine Leukocyte Esterase Negative /uL (Negative) Urine RBC 1 /hpf (0 - 3) Urine Microscopic WBC 12 /HPF (0-3) H Urine Squamous Epithelial Cells None seen /hpf (<5) Urine Bacteria None seen /hpf (None Seen) Urine Mucus Few (None Seen) Urine Glucose Normal mg/dL (Normal) Assessment/Plan Assessment/Plan Severe anemia Pancytopenia Gastric wall thickening Generalized weakness Monitor CBC hem I called today for a consult and not available to come see pending GI consult PPI daily Plan discussed with: Patient Date of Service: Sep 29, 2024 Billing Provider: NARINDER TIERNEY MD Common Visit Codes: [id number] INP/OBS CARE(HIGH) NARINDER TIERNEY MD Sep 29, 2024 19:05
[2024-09-30] VITALS (8 sets, daily range): BP systolic 104–144; BP diastolic 70–99; PULSE 62–88; RESP 17–19; TEMP 97.8–98.7; O2SAT 81–98
[2024-09-30 05:43] LABS: White Blood Cell 2.4 10^3/uL (4.4-10.8)
[2024-09-30 05:45] LABS: Mean Corpuscular Hemoglobin 32.2 pg (28.0-32.0); Mean Corpuscular Hgb Conc. 33.3 g/dL (32.0-36.0); Mean Corpuscular Volume 96.6 fL (80.0-100.0); Platelet Count (auto) 116 10^3/uL (140-450); Red Blood Cells 2.48 10^6/uL (4.5-5.90); Red Cell Distribution Width 18.8 % (11.8-14.3)
[2024-09-30 05:49] LABS: Basophils % (manual) 0 (0.0-2.0); Blast Cells 0; Eosinophils % (manual) 0 (0-7); Promyelocytes % 0; Reactive Lymphocytes 0
[2024-09-30 06:46] LABS: Band Neutrophils % (manual) 1; Lymphocytes % (manual) 64 (10.0-50.0); Metamyelocytes % 1; Monocytes % (manual) 10 (0-12); Myelocytes % 1
[2024-09-30 06:47] LABS: Platelet Estimate Decreased
--- NOTE | 2024-09-30 17:35 | DVHPN2 ---
Subjective in bed resting Reviewed: H&P, Labs Changes from previous H/P or p: No Changes Eyes: No Pain, No Vision change, No Conjunctivae inflammation, No Eyelid inflammation, No Other, No Redness ENT: No Ear pain, No Ear discharge, No Nose pain, No Nose discharge, No Nose congestion, No Mouth pain, No Mouth swelling, No Throat pain, No Throat swelling, No Other Cardiovascular: No Chest Pain, No Palpitations, No Orthopnea, No Paroxysmal Noc. Dyspnea, No Edema, No Lt Headedness, No Other Respiratory: No Cough, No Dry, No Shortness of breath, No SOB with excertion, No Wheezing, No Hemoptysis, No Pleuritic Pain, No Sputum, No Other Gastrointestinal: No Nausea, No Vomiting, No Abdominal Pain, No Diarrhea, No Constipation, No Melena, No Hematochezia, No Other Genitourinary: No Dysuria, No Frequency, No Incontinence, No Hematuria, No Retention, No Other Musculoskeletal: other (Joint pain); No neck pain, No shoulder pain; arm pain (Bilateral hand swelling); No back pain, No hand pain, No leg pain, No foot pain Skin: No Rash, No Lesions, No Jaundice, No Bruising, No Other Objective Vitals Vital Signs Date Time Temp Pulse Resp B/P (MAP) Pulse Ox O2 Delivery O2 Flow Rate FiO2 09/30/24 09:00 98.1 77 19 128/80 (96) 95 98.1 09/30/24 08:05 Room Air* 0 21 Intake/Output Intake and Output 09/30/24 07:00 Intake Total 2810 ml Balance 2810 ml Intake Oral 1270 ml IV Total 1540 ml # Voids 6 General Appearance: Alert, Oriented X3 HEENT: Atraumatic Lungs: Clear to auscultation Cardiovascular: Regular rate, Normal S1, Normal S2 Abdomen: Normal bowel sounds Medications Current Medications Medications Dose Ordered Sig/Rigo Route Start Time Stop Time Status Last Admin Dose Admin Tamsulosin HCl 0.4 mg QPM PO 09/28/24 18:00 09/29/24 17:54 0.4 MG Hydralazine HCl 10 mg Q6HP PRN IV 09/27/24 19:45 Amlodipine Besylate 5 mg DAILY PO 09/28/24 10:00 Sodium Chloride 1,000 ml @ 60 mls/hr [id number] IV 09/27/24 19:45 09/29/24 21:48 60 MLS/HR Acetaminophen/ Hydrocodone Bitart 1 tab Q4HP PRN PO 09/27/24 19:45 Ondansetron HCl 4 mg Q4HP PRN IV 09/27/24 19:45 Docusate Sodium 100 mg BIDPRN PRN PO 09/27/24 19:45 09/29/24 15:44 100 MG Acetaminophen 650 mg Q6HP PRN PO 09/27/24 19:45 Atorvastatin Calcium 10 mg HS PO 09/27/24 22:00 09/29/24 21:44 10 MG Nitroglycerin 0.4 mg Q5MINP PRN SL 09/27/24 22:15 Morphine Sulfate 2 mg Q30M PRN IV 09/27/24 22:15 Laboratory Results Laboratory Tests 09/28/24 04:18 09/30/24 05:08 Urinalysis Test 09/27/24 14:06 Urine Color Light-orange (Yellow) Urine Clarity Ex.turbid (Clear) Urine pH 5.0 (5.0-9.0) Urine Specific [place] 1.027 (1.001-1.035) Urine Protein Negative (Negative) Urine Ketones Negative (Negative) Urine Blood Negative /uL (Negative) Urine Nitrite Negative (Negative) Urine Bilirubin Negative (Negative) Urine Urobilinogen 2 mg/dL (Negative) H Urine Leukocyte Esterase Negative /uL (Negative) Urine RBC 1 /hpf (0 - 3) Urine Microscopic WBC 12 /HPF (0-3) H Urine Squamous Epithelial Cells None seen /hpf (<5) Urine Bacteria None seen /hpf (None Seen) Urine Mucus Few (None Seen) Urine Glucose Normal mg/dL (Normal) Assessment/Plan Assessment/Plan Severe anemia Pancytopenia Gastric wall thickening Generalized weakness Monitor CBC GI recs for EGD and colonoscopy once WBC better I called Dr Rios today and left voicemail for hem consult PPI daily Plan discussed with: Patient Date of Service: Sep 30, 2024 Billing Provider: NARINDER TIERNEY MD Common Visit Codes: [id number] INP/OBS CARE(HIGH) NARINDER TIERNEY MD Sep 30, 2024 17:35
[2024-09-30] MEDS: GOLYTELY 4L KIT PO ONE (17:53)
[2024-09-30] MEDS: DOCUSATE SOD 100 MG CAP PO ONE (17:53)
--- NOTE | 2024-09-30 19:05 | DVHPN2 ---
Progress Note - Dictate Date Seen: Sep 30, 2024 Has the PT tested + for MRSA If YES, has PT been informed?: No Medical Necessity Reason Pt with a Central, PICC or Fol: No Subjective Patient still has of the abdominal fullness and epigastric in the epigastric area Nausea no vomiting no Complaints of constipation Anorexia also vital signs Vital Sign Date Time Temp Pulse Resp B/P (MAP) Pulse Ox O2 Delivery O2 Flow Rate FiO2 09/30/24 17:00 98.0 62 19 135/89 (104) 97 98.0 09/30/24 08:05 Room Air* 0 21 Total Intake and Output 09/29/24 09/29/24 09/30/24 15:00 23:00 07:00 Intake Total 1470 ml 1340 ml Balance 1470 ml 1340 ml medications Current Medications Medications Dose Ordered Sig/Rigo Route Start Time Stop Time Status Last Admin Dose Admin Tamsulosin HCl 0.4 mg QPM PO 09/28/24 18:00 09/30/24 17:53 0.4 MG Hydralazine HCl 10 mg Q6HP PRN IV 09/27/24 19:45 Amlodipine Besylate 5 mg DAILY PO 09/28/24 10:00 Sodium Chloride 1,000 ml @ 60 mls/hr [id number] IV 09/27/24 19:45 09/29/24 21:48 60 MLS/HR Acetaminophen/ Hydrocodone Bitart 1 tab Q4HP PRN PO 09/27/24 19:45 Ondansetron HCl 4 mg Q4HP PRN IV 09/27/24 19:45 Docusate Sodium 100 mg BIDPRN PRN PO 09/27/24 19:45 09/29/24 15:44 100 MG Acetaminophen 650 mg Q6HP PRN PO 09/27/24 19:45 Atorvastatin Calcium 10 mg HS PO 09/27/24 22:00 09/29/24 21:44 10 MG Nitroglycerin 0.4 mg Q5MINP PRN SL 09/27/24 22:15 Morphine Sulfate 2 mg Q30M PRN IV 09/27/24 22:15 objective Abdomen is soft mild fullness in the epigastric area no rigidity no guarding no masses Labs WBC count is slightly better hemoglobin is stable Pathology consult is still pending laboratory and microbiology Laboratory Tests 09/30/24 05:08 09/28/24 04:18 Test 09/28/24 04:18 Range/Units Serum Glucose 113 H 74-106 mg/dL Assessment/Plan 69-year-old with with a abdominal pain nausea constipation low blood counts WBC count is better 2.4, hemoglobin stable Abdomen is CT showed thickening of the gastric wall as well as rectal wall stability of malignancy can not be excluded also prostate enlargement Clinical impression anemia and leukopenia of undetermined details Abnormal GI x-rays Clinical impression Abdominal pain nausea anorexia abnormal CT scan Possible colon lesion or upper GI tract lesion can not be excluded with the abnormal CAT scan PSA still pending Hematology consult is still pending Plans will do EGD colon evaluation because of the abnormal CT scan and the anemia will await PSA and Hematology consults Thank you Dr. Velasquez Plan discussed with: Patient CC Plasma Assessment Blood Product Administration S: 1955 DAKOTA VELASQUEZ MD Sep 30, 2024 19:04
[2024-09-30 23:42] LABS: Urine Bacteria None Seen /hpf (None Seen)
[2024-09-30 23:52] LABS: Urine Blood Negative /uL (Negative); Urine Clarity Clear (Clear); Urine Color Light-Yellow (Yellow); Urine Protein, UAD Negative (Negative); Urine Specific Gravity 1.007 (1.001-1.035); Urine Squamous Epithelial Cell None Seen /hpf (<5); Urine Urobilinogen Normal (Negative); Urine pH 6.5 (5.0-9.0)
[2024-09-30 23:56] LABS: Urine WBC < 1 /HPF (0-3)
[2024-10-01] VITALS (9 sets, daily range): BP systolic 119–129; BP diastolic 76–79; PULSE 60–81; RESP 14–20; TEMP 97–98.3; O2SAT 93–97
[2024-10-01 05:01] LABS: Hemoglobin 7.9 g/dL (13.5-17.5); White Blood Cell 2.4 10^3/uL (4.4-10.8)
[2024-10-01 05:04] LABS: Hematocrit 23.2 % (41.0-53.0); Mean Corpuscular Hgb Conc. 34.1 g/dL (32.0-36.0); Mean Corpuscular Volume 96.8 fL (80.0-100.0); Platelet Count (auto) 114 10^3/uL (140-450); Red Cell Distribution Width 18.8 % (11.8-14.3)
[2024-10-01 05:08] LABS: Basophils % (manual) 0 (0.0-2.0); Blast Cells 0; Eosinophils % (manual) 0 (0-7); Myelocytes % 0; Promyelocytes % 0; Reactive Lymphocytes 0
[2024-10-01 05:56] LABS: Band Neutrophils % (manual) 2; Lymphocytes % (manual) 54 (10.0-50.0); Metamyelocytes % 2; Monocytes % (manual) 10 (0-12); Platelet Estimate Decreased
[2024-10-01 06:19] LABS: INR 1.13 (0.9-1.15); Partial Thromboplastin Time 26.2 SEC (24.5-34.5); Prothrombin Time 11.8 sec (9.3-11.8)
[2024-10-01 08:07] LABS: PSA Free 0.32 ng/mL; Prostate Specific Antigen 0.9 ng/mL (0.0-4.0)
--- NOTE | 2024-10-01 08:38 | ECG ---
[facility] Test Date: 2024-10-01 Test Time: 04:43:12 Pat Name: SHANTANU BYERS Department: Respiratoy Room: 0237T A Gender: M Relationship Executive: ESAU : 1955 Requested By: DAKOTA CASE Order Number: [id number] Reading MD: Tristan Love Measurements Intervals [place] Rate: 70 P: 22 MO: 152 QRS: -23 QRSD: 109 T: 18 QT: 387 QTc: 418 Interpretive Statements Sinus rhythm Borderline left axis deviation Electronically Signed On 10-02-2024 20:21:41 PDT by Tristan Love Please click the below link to view image of tracing.
--- NOTE | 2024-10-01 09:06 | DVH ---
INDICATION: Preop TECHNIQUE: Frontal view of the chest. COMPARISON: None FINDINGS: . The heart and mediastinal contours are grossly unremarkable. There is no evidence of pleural disea se. The lungs are clear. The bony structures of the chest are intact without fracture. IMPRESSION: 1. No evidence of acute disease.
[2024-10-01] MEDS ORDERED: SUCCINYLCHOLINE CHLORIDE 20 MG/ML 10ML VIAL IV ONE (11:12)
[2024-10-01] MEDS ORDERED: fentaNYL CITRATE 100 MCG/2 ML VL ONE (11:17)
[2024-10-01] MEDS ORDERED: LIDOCAINE 1% INJ PF 5ML AMP ONE (11:17)
[2024-10-01] MEDS ORDERED: ONDANSETRON HCL 4 MG/2 ML VIAL ONE (11:17)
[2024-10-01] MEDS ORDERED: SODIUM CHLORIDE LOCK 10 ML ONE (11:17)
[2024-10-01] MEDS ORDERED: PROPOFOL 10 MG/ML 20 ML IV ONE (11:17)
[2024-10-01] MEDS ORDERED: MIDAZOLAM HCL 2MG/2ML 2ml VIAL (1mg/ml) ONE (11:17)
[2024-10-01] MEDS ORDERED: KETAMINE 50mg/ML 1ml syringe ONE (11:17)
[2024-10-01] MEDS ORDERED: HYDROmorphone HCL 2 MG/ML VL/or syr IV PRN ×2 (11:30)
[2024-10-01] MEDS ORDERED: MORPHINE SULFATE INJ 2 MG/ml SYRG IV PRN (11:30)
[2024-10-01] MEDS ORDERED: MORPHINE SULFATE 4 MG/ML SYR/VIAL IV PRN (11:30)
[2024-10-01] MEDS ORDERED: KETOROLAC TROMETH 30 MG/ML 1ML VIAL IV ONE (11:30)
[2024-10-01] MEDS ORDERED: METOCLOPRAMIDE HCL 5MG/ml INJ 2ml VIAL IV ONE (11:30)
--- NOTE | 2024-10-01 13:18 | DVHOP2 ---
Operative Report DATE OF PROCEDURE: 10/01/24 INDICATIONS FOR THE PROCEDURE: Anemia abdominal CAT scan possible rectal thickening PROCEDURE PERFORMED: Colonoscopy and polypectomy by biopsy cold biopsy forceps Colonoscopy and biopsy of the mildly inflamed rectum and sigmoid POSTOPERATIVE DIAGNOSIS: Small transverse colon polyp removed by cold biopsy forceps completely Mild proctitis biopsies taken Mild sigmoiditis biopsies taken Scattered diverticulae in sigmoid and descending colon Internal hemorrhoids without bleeding INFORMED CONSENT: The risks and benefits and alternatives were explained to the patient and informed consent was obtained. PROCEDURE IN DETAIL: The patient was kept NPO after midnight. Procedure was done under MAC in OR Olympus colonoscope was passed through the rectum all the way up to cecum. Cecum, ascending colon, hepatic flexure, transverse colon, splenic flexure, descending colon, and sigmoid colon were all visualized and the findings were as follows: Findings: There was some scattered stool particles throughout the colon especially in the right colon examination and hence examination suboptimal In the proximal transverse colon there was a small polyp which was about 5 mm in diameter this was sessile this was removed with the help of the cold biopsy forceps completely In the descending and sigmoid colon there were few diverticula seen without any gross bleeding In the in the midsigmoid there were erythematous streaks suggestive of mild nonspecific sigmoiditis biopsies taken no evidence of any gross colitis seen In the rectum there was also right by proctitis probably from thick stools and chronic constipation no ulcers no mass lesions ,biopsies taken to ensure there is no other pathology ENDOSCOPIC IMPRESSION: 5 mm transverse colon polyp removed by biopsy forceps Poor prep Diverticulosis Internal hemorrhoids Nonspecific proctitis sigmoiditis properly from constipation and thick stools biopsies taken to rule out any of the pathology SUGGESTIONS: Await the biopsy result Symptomatic treatment for the diverticulosis in the hemorrhoid Follow The hemoglobin closely Unable to explain the anemia from this colon studies may need further evaluations if necessary including Hematology consult capsule endoscopy etc. Thank you DAKOTA Norman MD Oct 01, 2024 13:18
--- NOTE | 2024-10-01 13:26 | DVHOP2 ---
Operative Report DATE OF PROCEDURE: 10/01/24 INDICATIONS FOR THE PROCEDURE: Anemia abdominal pain abdominal CT scan gastric wall thickening PROCEDURE PERFORMED: 1. Esophagogastroduodenoscopy and biopsy by cold biopsy forceps Esophagogastroduodenoscopy and polypectomy of the two small gastric polyps by biopsy forceps POSTOPERATIVE DIAGNOSIS: INFORMED CONSENT: The risks and benefits and alternatives were explained to the patient and informed consent was obtained. PROCEDURE IN DETAIL: The patient was kept NPO after midnight. In the endoscopy room, he was given IV fentanyl and Versed, and titrated slowly to get him sedated. Olympus gastroscope was passed through the oropharynx into the stomach and the duodenum, and the findings were as follows. Esophagus: 1 cm hiatal hernia No Esophagitis No Esophageal ulcer No Esophageal stricture No bleeding Stomach: Fundus: Retroflexed and visualized normal Body and antrum Two small gastric polyp removed by cold biopsy forceps 5 mm in diameter Antral gastritis biopsies taken to ensure there was no H pylori by cold biopsy for Pylorus normal Duodenum Duodenitis no ulcers seen biopsies taken to ensure there is no other pathology Endoscopic impression Hiatal hernia Two gastric polyps small ones removed by biopsy forceps Antral gastritis biopsies taken to ensure there is no H pylori Mild duodenitis Suggestions Await the biopsy results and the polyp histology We will treat with PPIs further duodenitis Unable to texplain the anemia completely from this study Recommend Hematology evaluation For the hemoglobin closely and if hemoglobin continues to drop may need capsule endoscopy and other workup Thank you for asking me to take part in the care of this pleasant patient DAKOTA Norman MD Oct 01, 2024 13:26
--- NOTE | 2024-10-01 16:40 | DVHPN2 ---
Subjective in bed resting Reviewed: H&P, Labs Changes from previous H/P or p: No Changes Eyes: No Pain, No Vision change, No Conjunctivae inflammation, No Eyelid inflammation, No Other, No Redness ENT: No Ear pain, No Ear discharge, No Nose pain, No Nose discharge, No Nose congestion, No Mouth pain, No Mouth swelling, No Throat pain, No Throat swelling, No Other Cardiovascular: No Chest Pain, No Palpitations, No Orthopnea, No Paroxysmal Noc. Dyspnea, No Edema, No Lt Headedness, No Other Respiratory: No Cough, No Dry, No Shortness of breath, No SOB with excertion, No Wheezing, No Hemoptysis, No Pleuritic Pain, No Sputum, No Other Gastrointestinal: No Nausea, No Vomiting, No Abdominal Pain, No Diarrhea, No Constipation, No Melena, No Hematochezia, No Other Genitourinary: No Dysuria, No Frequency, No Incontinence, No Hematuria, No Retention, No Other Musculoskeletal: other (Joint pain); No neck pain, No shoulder pain; arm pain (Bilateral hand swelling); No back pain, No hand pain, No leg pain, No foot pain Skin: No Rash, No Lesions, No Jaundice, No Bruising, No Other Objective Vitals Vital Signs Date Time Temp Pulse Resp B/P (MAP) Pulse Ox O2 Delivery O2 Flow Rate FiO2 10/01/24 13:30 77 10 130/81 (97) 98 10/01/24 13:04 Room Air 10/01/24 13:04 99.0 99.0 10/01/24 13:04 93 10/01/24 08:00 0 Intake/Output Intake and Output 10/01/24 06:59 Intake Total 3410 ml Balance 3410 ml Intake Oral 2650 ml IV Total 760 ml # Voids 6 # Bowel Movements 6 General Appearance: Alert, Oriented X3 HEENT: Atraumatic Lungs: Clear to auscultation Cardiovascular: Regular rate, Normal S1, Normal S2 Abdomen: Normal bowel sounds Medications Current Medications Medications Dose Ordered Sig/Rigo Route Start Time Stop Time Status Last Admin Dose Admin Tamsulosin HCl 0.4 mg QPM PO 09/28/24 18:00 09/30/24 17:53 0.4 MG Hydralazine HCl 10 mg Q6HP PRN IV 09/27/24 19:45 Amlodipine Besylate 5 mg DAILY PO 09/28/24 10:00 Sodium Chloride 1,000 ml @ 60 mls/hr [id number] IV 09/27/24 19:45 09/29/24 21:48 60 MLS/HR Acetaminophen/ Hydrocodone Bitart 1 tab Q4HP PRN PO 09/27/24 19:45 Ondansetron HCl 4 mg Q4HP PRN IV 09/27/24 19:45 Docusate Sodium 100 mg BIDPRN PRN PO 09/27/24 19:45 09/29/24 15:44 100 MG Acetaminophen 650 mg Q6HP PRN PO 09/27/24 19:45 Atorvastatin Calcium 10 mg HS PO 09/27/24 22:00 09/30/24 21:09 10 MG Nitroglycerin 0.4 mg Q5MINP PRN SL 09/27/24 22:15 Morphine Sulfate 2 mg Q30M PRN IV 09/27/24 22:15 Laboratory Results Laboratory Tests 09/28/24 04:18 10/01/24 04:40 Coagulation Test 10/01/24 04:40 Prothrombin Time 11.8 sec (9.3-11.8) Prothrombin Time INR 1.13 (0.9-1.15) Activated Partial Thromboplast Time 26.2 SEC (24.5-34.5) Urinalysis Test 09/27/24 14:06 09/30/24 23:38 Urine Mucus Few (None Seen) Urine Color Light-yellow (Yellow) Urine Clarity Clear (Clear) Urine pH 6.5 (5.0-9.0) Urine Specific [place] 1.007 (1.001-1.035) Urine Protein Negative (Negative) Urine Ketones Negative (Negative) Urine Blood Negative /uL (Negative) Urine Nitrite Negative (Negative) Urine Bilirubin Negative (Negative) Urine Urobilinogen Normal mg/dL (Negative) Urine Leukocyte Esterase Negative /uL (Negative) Urine RBC <1 /hpf (0 - 3) Urine Microscopic WBC < 1 /HPF (0-3) Urine Squamous Epithelial Cells None seen /hpf (<5) Urine Bacteria None seen /hpf (None Seen) Urine Glucose Normal mg/dL (Normal) Assessment/Plan Assessment/Plan Severe anemia Pancytopenia Gastric wall thickening Generalized weakness Monitor CBC GI recs for EGD and colonoscopy today I called Dr Rios today and left voicemail for hem consult PPI daily Dispo: Plan to DC him tomorrow if WBC stays same Plan discussed with: Patient Date of Service: Oct 01, 2024 Billing Provider: NARINDER TIERNEY MD Common Visit Codes: [id number] INP/OBS CARE(HIGH) NARNIDER TIERNEY MD Oct 01, 2024 16:39
[2024-10-02 01:00] VITALS: BP 106/72; PULSE 63; RESP 18; TEMP 98.3; O2SAT 92
[2024-10-02 05:00] VITALS: BP 109/69; PULSE 66; RESP 17; TEMP 98.2; O2SAT 97
[2024-10-02 08:00] VITALS: PULSE 66
[2024-10-02 09:00] VITALS: BP 113/64; PULSE 69; RESP 16; TEMP 97.7; O2SAT 96
[2024-10-02 10:43] LABS: Hematocrit 23.6 % (41.0-53.0); Hemoglobin 8.1 g/dL (13.5-17.5); Mean Corpuscular Hemoglobin 33.2 pg (28.0-32.0); Mean Corpuscular Hgb Conc. 34.1 g/dL (32.0-36.0); Mean Corpuscular Volume 97.5 fL (80.0-100.0); Platelet Count (auto) 112 10^3/uL (140-450); Red Blood Cells 2.42 10^6/uL (4.5-5.90); White Blood Cell 2.7 10^3/uL (4.4-10.8)
[2024-10-02 10:46] LABS: Band Neutrophils % (manual) 0; Basophils % (manual) 0 (0.0-2.0); Blast Cells 0; Eosinophils % (manual) 0 (0-7); Metamyelocytes % 0; Myelocytes % 0; Promyelocytes % 0
[2024-10-02 11:16] LABS: Lymphocytes % (manual) 51 (10.0-50.0); Monocytes % (manual) 12 (0-12); Reactive Lymphocytes 8
[2024-10-02 11:17] LABS: Platelet Estimate Decreased
[2024-10-02] MEDS ORDERED: AML5T PO (11:41)
[2024-10-02] MEDS ORDERED: PANT40TA2 PO (11:41)
[2024-10-02] MEDS ORDERED: ATOR20TA50 PO (11:41)
[2024-10-02 12:39] VITALS: BP 117/68; PULSE 63; RESP 16; TEMP 97.6; O2SAT 93
--- NOTE | 2024-10-02 12:44 | DVHDS2 ---
Discharge Summary Date of Admission Sep 27, 2024 at 22:10 Date of Discharge: Oct 02, 2024 Labs/Diagnostic Data: Laboratory Results Test 10/02/24 10:13 10/01/24 04:40 09/30/24 23:38 09/30/24 05:08 White Blood Count 2.7 10^3/uL (4.4-10.8) Red Blood Count 2.42 10^6/uL (4.5-5.90) Hemoglobin 8.1 g/dL (13.5-17.5) Hematocrit 23.6 % (41.0-53.0) Mean Corpuscular Volume 97.5 fL (80.0-100.0) Mean Corpuscular Hemoglobin 33.2 pg (28.0-32.0) Mean Corpuscular Hemoglobin Concent 34.1 g/dL (32.0-36.0) Red Cell Distribution Width 19.0 % (11.8-14.3) Platelet Count 112 10^3/uL (140-450) Mean Platelet Volume 7.0 fL (6.9-10.8) Neutrophils (%) (Auto) % (37.0-80.0) Lymphocytes (%) (Auto) % (10.0-50.0) Monocytes (%) (Auto) % (0.0-12.0) Basophils (%) (Auto) % (0.0-2.0) Neutrophils # (Auto) 10 ^3/uL (1.6-8.6) Lymphocytes # (Auto) 10 ^3/uL (0.4-5.4) Monocytes # (Auto) 10 ^3/uL (0-1.3) Differential Total Cells Counted 100.0 (100) Neutrophils % (Manual) 29 (37.0-80.0) Band Neutrophils % (Manual) 0 Lymphocytes % (Manual) 51 (10.0-50.0) Monocytes % (Manual) 12 (0-12) Eosinophils % (Manual) 0 (0-7) Basophils % (Manual) 0 (0.0-2.0) Metamyelocytes % (manual) 0 Myelocytes % (Manual) 0 Promyelocytes % (Manual) 0 Blast Cells % (Manual) 0 Reactive Lymphocytes 8 Platelet Estimate Decreased Prothrombin Time 11.8 sec (9.3-11.8) Prothrombin Time INR 1.13 (0.9-1.15) Activated Partial Thromboplast Time 26.2 SEC (24.5-34.5) Urine Color Light-yellow (Yellow) Urine Clarity Clear (Clear) Urine pH 6.5 (5.0-9.0) Urine Specific [place] 1.007 (1.001-1.035) Urine Protein Negative (Negative) Urine Ketones Negative (Negative) Urine Blood Negative /uL (Negative) Urine Nitrite Negative (Negative) Urine Bilirubin Negative (Negative) Urine Urobilinogen Normal mg/dL (Negative) Urine Leukocyte Esterase Negative /uL (Negative) Urine RBC <1 /hpf (0 - 3) Urine Microscopic WBC < 1 /HPF (0-3) Urine Squamous Epithelial Cells None seen /hpf (<5) Urine Bacteria None seen /hpf (None Seen) Urine Glucose Normal mg/dL (Normal) Free Prostate Specific Antigen 0.32 ng/mL (N/A) Percent Free Prostate Specific Ag 35.6 % (.) Prostate Specific Antigen Total 0.9 ng/mL (0.0-4.0) Test 09/29/24 01:29 09/28/24 04:18 09/27/24 14:06 Stool Occult Blood Negative (Negative) Stool Occult Blood Sample #3 (Negative) Anisocytosis (manual) Slight Sodium Level 138 mmol/L (136-145) Potassium Level 4.4 mmol/L (3.5-5.1) Chloride Level 108 mmol/L (98-107) Carbon Dioxide Level 22 mmol/L (20-31) Anion Gap 8 (5-15) Blood Urea Nitrogen 15 mg/dL (9-23) Creatinine 0.86 mg/dL (0.700-1.30) Glomerular Filtration Rate Calc 93 mL/min (>90) BUN/Creatinine Ratio 17.4 (10.0-20.0) Serum Glucose 113 mg/dL (74-106) Calcium Level 9.5 mg/dL (8.7-10.4) Total Bilirubin 1.6 mg/dL (0.2-1.0) Aspartate Amino Transferase (AST) 13 U/L (13-40) Alanine Aminotransferase (ALT) < 9 U/L (7-40) Alkaline Phosphatase 61 U/L (46-116) Total Protein 7.1 g/dL (5.7-8.2) Albumin 4.3 g/dL (3.2-4.8) Urine Mucus Few (None Seen) Other Laboratory Tests 10/02/24 10:13 09/28/24 04:18 Brief Hx & Hospital Course: 69-year-old male with past medical history of BPH, hypertension, and hyperlipidemia who presented to [facility] ED for evaluation of abnormal labs. Patient reports that he has been experiencing joint pains for the past 6-8 weeks with associated bilateral hand swelling, fatigue, shortness of breaths. Patient states that he visited urgent care today and had been provided Toradol and steroid injection for his pain/swelling. Patient was seen and evaluated in the ED, laboratory data shows WBC 1.8, hemoglobin 7.4, hematocrit 23.3, platelets 135, sodium 139, potassium 4.5, BUN 19, creatinine 1.05, glucose 121, calcium 10.4, blood pressure 155/94, heart rate 72, temperature 98.3 F, O2 saturation 96% on oxygen. Abdomen/pelvis CT revealing mild gastric wall thickening which may be due to inadequate distention/gastritis, moderate amount of fecal material within the colon, mild rectal wall thickening which may be due to inadequate distention with neoplasm not excluded, enlarged prostate noted. Patient was given 1 unit of PRBC, please see medication orders section in the computer. On my assessment, patient denied chest pain, no headache, no dizziness, and blurry vision, no diaphoresis, currently on oxygen, no nausea, no vomiting, no fever, no chills. Patient was admitted for further evaluation and medical management. Had EGD with gastritis. Hb stable and WBC also improved. No further bleeding. Condition at Discharge: Good Final Diagnosis/Problems List pancytopenia acute blood loss anemia acute gi bleeding Discharge Disposition: Home Discharge Instruct/Medications Diet: Regular Activity: No Restrictions, As Tolerated Follow Up/Referral: PCP and hematology in 7 days Medications: amlodipine, pantoprazole, simvastatin Discharge Statement: "Patient was advised to return to the ER or call 911 if any headaches, dizziness, shortness of breath, chest pain, abdominal pain, bleeding, fevers, or worsening of medical condition. Patient was counseled about treatment plan, medications, possible side effects, patientverbalized understanding. All questions were answered to the best of my ability. This discharge took greater then 30 minutes in planning, reviewing documentation, counseling the patient, and discussing with other team members." ASSESSMENT ASSESSMENT Assessment pancytopenia acute blood loss anemia acute gi bleeding Date of Service: Oct 02, 2024 Billing Provider: NARINDER TIERNEY MD Common Visit Codes: [id number] DISCH DAY >30min NARINDER TIERNEY MD Oct 02, 2024 12:44
[2024-10-02 13:00] VITALS: BP 117/68; PULSE 63; RESP 16; TEMP 97.6; O2SAT 93
== END 2024-10-02 16:08 | disposition home or self-care (01) | DRG 808 ==
LOC: ER 13:45 → OVERFLOW 22:10 → TELE-EAST 09-28 15:36
PROVIDERS: ADMIT Hospitalist; ATTEND Hospitalist
PROC: 30233N1 Transfusion of Nonautologous Red Blood Cells into Peripheral Vein, Percutaneous Approach (ICD-10-PCS; principal; 2024-09-27)
PROC: 0DBL8ZX Excision of Transverse Colon, Via Natural or Artificial Opening Endoscopic, Diagnostic (ICD-10-PCS; 2024-10-01)
PROC: 0DBN8ZX Excision of Sigmoid Colon, Via Natural or Artificial Opening Endoscopic, Diagnostic (ICD-10-PCS; 2024-10-01)
PROC: 0DB98ZX Excision of Duodenum, Via Natural or Artificial Opening Endoscopic, Diagnostic (ICD-10-PCS; 2024-10-01)
PROC: 0DB78ZX Excision of Stomach, Pylorus, Via Natural or Artificial Opening Endoscopic, Diagnostic (ICD-10-PCS; 2024-10-01)
PROC: 0DB68ZX Excision of Stomach, Via Natural or Artificial Opening Endoscopic, Diagnostic (ICD-10-PCS; 2024-10-01)
PROC: 0DBP8ZX Excision of Rectum, Via Natural or Artificial Opening Endoscopic, Diagnostic (ICD-10-PCS; 2024-10-01 12:26)
DX: D61.818 Other pancytopenia (principal); K29.71 Gastritis, unspecified, with bleeding; K29.81 Duodenitis with bleeding; K57.31 Diverticulosis of large intestine without perforation or abscess with bleeding; D62 Acute posthemorrhagic anemia; K64.8 Other hemorrhoids; K31.7 Polyp of stomach and duodenum; M19.90 Unspecified osteoarthritis, unspecified site; K63.5 Polyp of colon; N40.0 Benign prostatic hyperplasia without lower urinary tract symptoms; K44.9 Diaphragmatic hernia without obstruction or gangrene; I10 Essential (primary) hypertension; K52.9 Noninfective gastroenteritis and colitis, unspecified; E78.5 Hyperlipidemia, unspecified; E11.9 Type 2 diabetes mellitus without complications; K59.09 Other constipation; Z88.4 Allergy status to anesthetic agent; Z82.0 Family history of epilepsy and other diseases of the nervous system; Z79.899 Other long term (current) drug therapy
CPT/HCPCS: 36415; 36430; 43239; 45380; 71045; 74176; 80048; 80053; 81001; 82270; 84154; 85007; 85027; 85610; 85730; 86850; 86900; 86901; 86920; 93005; G0378; J0330; J2250; J2405; J2704